=== PATIENT | female | born 1985 | race Two or more races ===

== ENCOUNTER 2023-12-09 16:08 | Observation (INO) | payer OTHER ==
[2023-12-09 16:49] VITALS: BMI 37.4
[2023-12-09 18:20] LABS: BASO % 0.7 % (0-2.0); EOS % 1.6 % (0-4.5); HEMATOCRIT 35.7 % (32.4-45.2); HEMOGLOBIN 11.9 GM/dL (10.7-15.3); LYMPH % 30.9 % (8-40); MCH 27.5 pg (25.7-33.7); MCHC 33.5 g/dl (32.0-36.0); MEAN PLT VOLUME 8.3 fl (7.5-11.1); MONO % 9.3 % (3.8-10.2); NEUT % 57.5 % (42.8-82.8); PLATELET COUNT 295 10^3/uL (134-434); RBC 4.35 M/mm3 (3.60-5.2); RDW 14.8 % (11.6-15.6); WHITE BLOOD COUNT 7.7 K/mm3 (4.0-10.0)
[2023-12-09 18:32] LABS: CHLORIDE 109 mmol/L (98-107); SODIUM 142 mmol/L (136-145)
[2023-12-09 18:34] LABS: ALBUMIN 3.5 g/dl (3.4-5.0); ANION GAP 8 mmol/L (4-13); BLOOD UREA NITROGEN 9.2 mg/dL (7-18); CALCIUM 9.3 mg/dL (8.5-10.1); CO2 25 mmol/L (21-32); GLUCOSE,RANDOM 100 mg/dL (74-106)
[2023-12-09 18:37] LABS: CREATININE 0.8 mg/dL (0.55-1.3); SGOT/AST 4 U/L (15-37); SGPT/ALT 13 U/L (13-61)
[2023-12-09 18:39] LABS: BILIRUBIN,TOTAL 0.7 mg/dL (0.2-1); TOT PROT 7.3 g/dl (6.4-8.2)
[2023-12-09 18:40] LABS: ALK PHOS 76 U/L (45-117)
[2023-12-09] MEDS ORDERED: levETIRAcetam 500 MG/5 ML INJECTION VIAL IVPB ONE ×2 (19:30→19:58)
[2023-12-09] MEDS ORDERED: LORazepam 2 MG/ML SDV VIAL IVPUSH ONE ×2 (20:17→20:20)
[2023-12-09] MEDS ORDERED: ACETAMINOPHEN 1000 MG/100 ML BAG IVPB ONE (20:17)
[2023-12-09] MEDS ORDERED: ACETAMINOPHEN INJECTION 100 ML IVPB ONE (20:39)
[2023-12-09] MEDS ORDERED: ALBUTEROL SO4 2.5/IPRATROPIUM 0.5 INH SOL 3 ML VIAL.NEB. NEB PRN (22:17)
[2023-12-09] MEDS ORDERED: LORazepam 2 MG/ML SDV VIAL IVPUSH PRN (22:22)
[2023-12-10 08:57] LABS: HEMATOCRIT 34.2 % (32.4-45.2); HEMOGLOBIN 11.5 GM/dL (10.7-15.3); MCH 27.8 pg (25.7-33.7); MCHC 33.7 g/dl (32.0-36.0); MEAN CELL VOLUME 82.5 fl (80-96); MEAN PLT VOLUME 8.6 fl (7.5-11.1); PLATELET COUNT 254 10^3/uL (134-434); RBC 4.15 M/mm3 (3.60-5.2); RDW 15.1 % (11.6-15.6); WHITE BLOOD COUNT 5.8 K/mm3 (4.0-10.0)
[2023-12-10 09:15] LABS: ALBUMIN 3.1 g/dl (3.4-5.0); BLOOD UREA NITROGEN 7.2 mg/dL (7-18); CALCIUM 8.6 mg/dL (8.5-10.1); MAGNESIUM 2.3 mg/dL (1.8-2.4)
[2023-12-10 09:19] LABS: CREATININE 0.8 mg/dL (0.55-1.3); PHOSPHOROUS 3.1 mg/dL (2.5-4.9)
[2023-12-10 09:20] LABS: BILIRUBIN,TOTAL 0.8 mg/dL (0.2-1); TOT PROT 6.7 g/dl (6.4-8.2)
[2023-12-10] MEDS ORDERED: levETIRAcetam 500 MG TABLET (FP) PO SCH (10:00)
[2023-12-10] MEDS: ENOXAPARIN NA (PORCINE) 40 MG/0.4 ML DISP.SYRIN SQ SCH (10:05)
[2023-12-10 12:03] LABS: EPI CELLS 14 /uL (0-25.1); HYALINE CASTS 0 /uL (0-3.1); PH,URINE 7.5 (5.0-8.0); URINE APPEARANCE CLEAR; URINE BACTERIA 217 /uL (0-1359); URINE BILIRUBIN NEGATIVE (NEGATIVE); URINE COLOR YELLOW; URINE GLUCOSE (UA) NEGATIVE (NEGATIVE); URINE KETONE TRACE (NEGATIVE); URINE LEUK ESTERASE 2+ (NEGATIVE); URINE NITRITE NEGATIVE (NEGATIVE); URINE PROTEIN NEGATIVE (NEGATIVE); URINE RBC 1354 /uL (0-23.9); URINE WBC 182 /uL (0-25.8)
[2023-12-10] MEDS ORDERED: ASPIRIN 81 MG CHEWABLE TABLETS PO ONE (12:04)
[2023-12-10] MEDS ORDERED: ROSUVASTATIN CA 40 MG TABLET PO ONE (12:04)
[2023-12-10] MEDS ORDERED: LORazepam 2 MG/ML SDV VIAL IVPUSH PRN (12:05)
[2023-12-10] MEDS ORDERED: ASPIRIN 81 MG CHEWABLE TABLETS ONE (12:25)
[2023-12-10] MEDS ORDERED: ROSUVASTATIN CA 20 MG TABLET ONE (12:25)
[2023-12-10] MEDS ORDERED: ROSUVASTATIN CA 20 MG TABLET PO ONE (12:30)
[2023-12-10 12:33] LABS: METHADONE, UR NEGATIVE (NEGATIVE); URINE BENZODIAZEPINES NEGATIVE (NEGATIVE)
[2023-12-10 12:35] LABS: URINE AMPHETAMINES NEGATIVE (NEGATIVE)
[2023-12-10 12:38] LABS: OPIATES, URI NEGATIVE (NEGATIVE); PHENCYCLIDINE,URINE NEGATIVE (NEGATIVE); URINE BARBITURATES NEGATIVE (NEGATIVE)
[2023-12-10 12:43] LABS: COCAINE, UR NEGATIVE (NEGATIVE)
[2023-12-10] MEDS ORDERED: levETIRAcetam 500 MG/5 ML INJECTION VIAL IVPB ONE (13:46)
[2023-12-10] MEDS ORDERED: CEFTRIAXONE 1 GM in DEXTROSE 5%-WATER - 50 ML IVPB ONE (13:50)
[2023-12-10] MEDS ORDERED: LORazepam 0.5 MG TABLET PO ONE (13:54)
[2023-12-10 16:58] LABS: BASO % 0.7 % (0-2.0); HEMATOCRIT 36.6 % (32.4-45.2); MCH 27.1 pg (25.7-33.7); MCHC 32.7 g/dl (32.0-36.0); MEAN CELL VOLUME 82.7 fl (80-96); MEAN PLT VOLUME 8.9 fl (7.5-11.1); MONO % 7.1 % (3.8-10.2); NEUT % 63.2 % (42.8-82.8); PLATELET COUNT 284 10^3/uL (134-434); RBC 4.42 M/mm3 (3.60-5.2); RDW 15.1 % (11.6-15.6); WHITE BLOOD COUNT 8.2 K/mm3 (4.0-10.0)
[2023-12-10 17:22] LABS: MAGNESIUM 2.4 mg/dL (1.8-2.4)
[2023-12-10 17:26] LABS: PHOSPHOROUS 3.3 mg/dL (2.5-4.9)
[2023-12-10] MEDS: levETIRAcetam 500 MG TABLET (FP) PO SCH (21:13)
[2023-12-11] MEDS ORDERED: ACETAMINOPHEN 1000 MG/100 ML BAG IVPB ONE (04:53)
[2023-12-11] MEDS: TRANEXAMIC ACID 1000 MG/10 ML VIAL IVPUSH SCH ×3 (05:35→21:14)
[2023-12-11] MEDS ORDERED: PATIENT'S OWN MEDICATION (NON-FORMULARY) (Tranexamic Acid [Tranexamic Acid] 650 MG Tablet) PO SCH (06:00)
[2023-12-11] MEDS ORDERED: CEFTRIAXONE 1 GM in DEXTROSE 5%-WATER - 50 ML IVPB SCH (10:00)
[2023-12-11] MEDS: levETIRAcetam 500 MG TABLET (FP) PO SCH (10:16)
[2023-12-11] MEDS: ENOXAPARIN NA (PORCINE) 40 MG/0.4 ML DISP.SYRIN SQ SCH ×2 (10:16→11:14)
[2023-12-11 11:03] LABS: BASO % 0.5 % (0-2.0); EOS % 1.2 % (0-4.5); HEMATOCRIT 35.9 % (32.4-45.2); HEMOGLOBIN 11.9 GM/dL (10.7-15.3); LYMPH % 31.5 % (8-40); MCHC 33.1 g/dl (32.0-36.0); MEAN CELL VOLUME 81.4 fl (80-96); MEAN PLT VOLUME 8.4 fl (7.5-11.1); NEUT % 59.8 % (42.8-82.8); PLATELET COUNT 278 10^3/uL (134-434); RDW 14.8 % (11.6-15.6); WHITE BLOOD COUNT 7.4 K/mm3 (4.0-10.0)
[2023-12-11 11:15] LABS: CALCIUM 9.1 mg/dL (8.5-10.1)
[2023-12-11 11:16] LABS: ALBUMIN 3.3 g/dl (3.4-5.0)
[2023-12-11 11:19] LABS: CREATININE 0.8 mg/dL (0.55-1.3)
[2023-12-11 11:20] LABS: BILIRUBIN,TOTAL 0.7 mg/dL (0.2-1); TOT PROT 7.1 g/dl (6.4-8.2)
[2023-12-11] MEDS: TOPIRAMATE 25 MG TABLET PO SCH (21:12)
[2023-12-11] MEDS: PRAMIPEXOLE DIHYDROCHLORIDE 0.25 MG TABLET PO SCH (21:13)
[2023-12-11] MEDS: clonazePAM 0.5 MG TABLET PO PRN (21:13)
[2023-12-12] MEDS: TRANEXAMIC ACID 1000 MG/10 ML VIAL IVPUSH SCH (05:41)
[2023-12-12 06:54] VITALS: BP 133/74; PULSE 60; RESP 16; TEMP 97.9
[2023-12-12] MEDS ORDERED: PANTOPRAZOLE 40 MG TABLET PO SCH (10:00)
[2023-12-12] MEDS: ENOXAPARIN NA (PORCINE) 40 MG/0.4 ML DISP.SYRIN SQ SCH (10:06)
[2023-12-12] MEDS: TOPIRAMATE 25 MG TABLET PO SCH (10:07)
[2023-12-12] MEDS: PRAMIPEXOLE DIHYDROCHLORIDE 0.25 MG TABLET PO SCH (10:08)
[2023-12-12] MEDS: clonazePAM 0.5 MG TABLET PO PRN (10:34)
[2023-12-12] MEDS ORDERED: ONDANSETRON 4 MG TABLET PO ONE (13:52)
== END 2023-12-12 14:34 | disposition home or self-care (01) ==
LOC: JER 16:08 → JERBED 19:56 → J8W 12-10 14:01 → J4S 12-10 17:45
PROVIDERS: ADMIT Student in an Organized Health Care Education/Training Program
PROC: 3E033NZ Introduction of Analgesics, Hypnotics, Sedatives into Peripheral Vein, Percutaneous Approach (ICD-10-PCS; principal; 2023-12-09)
PROC: 3E03329 Introduction of Other Anti-infective into Peripheral Vein, Percutaneous Approach (ICD-10-PCS; 2023-12-09)
PROC: 3E033NZ Introduction of Analgesics, Hypnotics, Sedatives into Peripheral Vein, Percutaneous Approach (ICD-10-PCS; 2023-12-09)
DX: R56.9 Unspecified convulsions (principal); F41.8 Other specified anxiety disorders; F39 Unspecified mood [affective] disorder; K58.9 Irritable bowel syndrome, unspecified; Z90.49 Acquired absence of other specified parts of digestive tract; F32.A Depression, unspecified; R55 Syncope and collapse; R07.89 Other chest pain; F43.9 Reaction to severe stress, unspecified; J45.909 Unspecified asthma, uncomplicated; E66.9 Obesity, unspecified; G44.89 Other headache syndrome; G25.81 Restless legs syndrome
CPT/HCPCS: 36415; 70450-TC; 70551-TC; 76775-TC; 80053; 80307; 81003; 82550; 82962; 83605; 83735; 84100; 84439; 84443; 84702; 85025; 85027; 87040; 87077; 87086; 93005; 93010; 96365; 96375; 96376; 99285-25; G0378